=== PATIENT | female | born 1960 | race Caucasian/White ===

== ENCOUNTER 2020-10-22 08:37 | Outpatient (CLI) | payer BC, SELFPAY ==
--- NOTE | 2020-10-22 08:45 | MR_ITS ---
WS: [id number] MRI HEAD WITHOUT CONTRAST TECHNIQUE: Sagittal T1, T2 axial, T2 axial FLAIR, axial and coronal T1 images, axial susceptibility w eighted imaging, axial diffusion weighted images, and coronal T2 images were obtained. CLINICAL INFORMATION: HEADACHE COMPARISON: None. FINDINGS: No evidence of restricted diffusion to suggest acute ischemia. Ventricular system and basal cisterns are patent. Mild patchy supratentorial white matter changes likely due to small vessel disease in a p atient this age. Mild parenchymal volume loss. Normal posterior fossa. Normal vascular flow voids at the skull base. No extra-axial fluid collections. No evidence of mass or mass effect. No hemosiderin on the susceptib ly weighted images. Normal optic chiasm and pituitary infundibulum. Temporal lobes and hippocampal fo rmations are normal in appearance. Normal optic chiasm and pituitary infundibulum. Normal cavernous s inuses and Meckel's cave. MR/MR head wo con* [id number] IMPRESSION: 1. No evidence of restricted diffusion to suggest acute ischemia. 2. Mild small vessel changes with mild parenchymal volume loss. 3. No hemosiderin on susceptibly weighted images. 4. Normal temporal lobes and hippocampal formations. Normal optic chiasm and p ituitary infundibulum. 5. No other significant findings.
== END 2020-10-22 08:38 | disposition home or self-care (01) ==
PROVIDERS: PCP Internal Medicine; Visit Provider Internal Medicine
DX: R51.9 Headache, unspecified (principal)
CPT/HCPCS: 70551

== ENCOUNTER 2021-02-01 06:00 | Outpatient (RCR) | payer BC, SELFPAY | END 2021-02-23 23:59 | disposition home or self-care (01) | LOC: SOT 06:00 | PROVIDERS: PCP Internal Medicine; Referring Provider Orthopaedic Surgery; Visit Provider Orthopaedic Surgery | DX: M18.11 Unilateral primary osteoarthritis of first carpometacarpal joint, right hand (principal) | CPT/HCPCS: 97110; 97112; 97166; 97530 ==

== ENCOUNTER 2021-02-24 06:00 | Outpatient (RCR) | payer BC, SELFPAY | END 2021-03-25 12:22 | disposition home or self-care (01) | LOC: SOT 06:00 | PROVIDERS: PCP Internal Medicine; Referring Provider Orthopaedic Surgery; Visit Provider Orthopaedic Surgery | DX: M18.11 Unilateral primary osteoarthritis of first carpometacarpal joint, right hand (principal) | CPT/HCPCS: 97110; 97112 ==

== ENCOUNTER 2022-04-19 08:53 | Outpatient (CLI) | payer BC, SELFPAY ==
--- NOTE | 2022-04-19 09:19 | CT_ITS ---
WS: [id number] LDCT LUNG CANCER SCREENING HISTORY: NICOTINE DEPENDENCE TECHNIQUE: Axial imaging performed from the apices to 1 cm below the costophrenic angles. Coronal and sagittal reformats are submitted with axial MIP series. All CT scans at [facility] use at least one of these dose optimization techniques: automated exposure control; mA and/or kV adjustment per patient size (includes targeted exams where dose is matched to clinical indication); or iterativ e reconstruction. DLP: 74.52 mGy.cm DIvol: Mean CTDIvol: 1.60 (mGy) COMPARISON: None available. Diagnostic quality: Satisfactory Lung Nodules: Marked pulmonary hyperexpansion. Centrilobular emphysema. Biapical pleural thickening a nd scarring. Additional areas of peripheral pleural thickening and tagging bilaterally. No pulmonary mass or nodules. No endobronchial thickening. Mild changes in the RIGHT upper lobe of bronchiectasis. Heart: Normal size heart. No pericardial effusion. Other findings: No mediastinal or hilar adenopathy. Mild atherosclerosis aorta. No aneurysm. Negative upper abdomen. Marked increase in thoracic kyphosis thoracic spine. Disc spaces are narrowed. CT/CT lung screening [id number] IMPRESSION: LUNG-RADS: 1-Negative FOLLOW UP: 12 Month: Continue annual screening with LDCT OTHER FINDINGS (S MODIFIER): None.
== END 2022-04-19 08:54 | disposition home or self-care (01) ==
LOC: RAD 08:56
PROVIDERS: PCP Internal Medicine; Visit Provider Internal Medicine
DX: Z12.2 Encounter for screening for malignant neoplasm of respiratory organs (principal); F17.210 Nicotine dependence, cigarettes, uncomplicated
CPT/HCPCS: 71271

== ENCOUNTER → 2022-09-16 07:22 | Outpatient (BNVA) | payer OTHER, SELFPAY | PROVIDERS: PCP Internal Medicine; Visit Provider Family Medicine Adult Medicine | DX: B34.9 Viral infection, unspecified (principal); R11.2 Nausea with vomiting, unspecified; R19.7 Diarrhea, unspecified; J11.1 Influenza due to unidentified influenza virus with other respiratory manifestations | CPT/HCPCS: 87400; 87426 ==

== ENCOUNTER 2024-01-10 08:38 | Outpatient (CLI) | payer MEDICARE, SELFPAY ==
--- NOTE | 2024-01-10 08:43 | XRR_ITS ---
PROCEDURE INFORMATION: Exam: XR Thoracic Spine Exam date and time: 01/10/2024 8:50 AM Age: 63 years old Clinical indication: Pain in thoracic spine; Patient HX: Upper back pain for years, worsening over past 3 month, pain has started running into neck and shoulders; Additional info: Upper back pain, kyphosis on exam, new diagnosis TECHNIQUE: Imaging protocol: Radiologic exam of the thoracic spine. Views: 3 views. COMPARISON: CT lung screening [id number] 04/19/2022 9:24 AM FINDINGS: Bones/joints: Vertebral body spurring can be seen at multiple levels. No fracture or subluxation noted.The bony structures demonstrate diffuse osteopenia. Soft tissues: Unremarkable. XR/XR thoracic spine min 4V [id number] IMPRESSION: No acute findings.
== END 2024-01-10 08:39 | disposition home or self-care (01) ==
LOC: RAD 08:39
PROVIDERS: PCP Family Medicine Adult Medicine; Visit Provider Family Medicine Adult Medicine
DX: M40.00 Postural kyphosis, site unspecified (principal); M54.6 Pain in thoracic spine; M89.8X1 Other specified disorders of bone, shoulder; M19.90 Unspecified osteoarthritis, unspecified site; M25.78 Osteophyte, vertebrae
CPT/HCPCS: 72074; 80053; 80061; 84443; 85025

== ENCOUNTER → 2024-09-26 14:30 | Outpatient (BNVA) | payer MEDICARE, OTHER, SELFPAY | PROVIDERS: PCP Family Medicine Adult Medicine; Visit Provider Family Medicine | DX: Z12.11 Encounter for screening for malignant neoplasm of colon (principal); Z12.12 Encounter for screening for malignant neoplasm of rectum; F17.218 Nicotine dependence, cigarettes, with other nicotine-induced disorders; R07.9 Chest pain, unspecified; I10 Essential (primary) hypertension; E78.5 Hyperlipidemia, unspecified; N18.32 Chronic kidney disease, stage 3b; Z76.89 Persons encountering health services in other specified circumstances; F33.9 Major depressive disorder, recurrent, unspecified; M54.6 Pain in thoracic spine; G89.29 Other chronic pain; G25.81 Restless legs syndrome; J43.1 Panlobular emphysema; F51.01 Primary insomnia; Z12.2 Encounter for screening for malignant neoplasm of respiratory organs | CPT/HCPCS: 80053 ==

== ENCOUNTER → 2024-10-03 14:22 | Outpatient (BNVA) | payer MEDICARE, OTHER, SELFPAY | PROVIDERS: PCP Family Medicine; Visit Provider Student in an Organized Health Care Education/Training Program | DX: Z12.11 Encounter for screening for malignant neoplasm of colon (principal) | CPT/HCPCS: 99024; 99204 ==

== ENCOUNTER 2024-10-07 09:43 | Outpatient (CLI) | payer MEDICARE, OTHER, SELFPAY ==
--- NOTE | 2024-10-07 10:00 | CT_ITS ---
WS: [id number] LDCT LUNG CANCER SCREENING HISTORY: smoker; 50pk yr hx; screening TECHNIQUE: Axial imaging performed from the apices to 1 cm below the costophrenic angles. Coronal and sagittal reformats are submitted with axial MIP series. All CT scans at [facility] use at least one of these dose optimization techniques: automated exposure control; mA and/or kV adjustment per patient size (includes targeted exams where dose is matched to clinical indication); or iterative reconstruction. DLP: 49.80 mGy.cm DIvol: Mean CTDIvol: 0.80 (mGy) COMPARISON: 04/19/2022 Diagnostic quality: Satisfactory Lungs: Marked pulmonary hyperexpansion with emphysema. Stable biapical pleural fibrosis and scarring. No pulmonary mass or nodule. No endobronchial lesions. Heart: Normal size heart with no pericardial effusion.. Other findings: Mild atherosclerosis aorta. No mediastinal or hilar adenopathy. No adrenal mass. Moderate increase in thoracic kyphosis. CT/CT lung screening [id number] IMPRESSION: LUNG-RADS: 1-Negative FOLLOW UP: 12 Month: Continue annual screening with LDCT OTHER FINDINGS (S MODIFIER): None.
== END 2024-10-07 09:44 | disposition home or self-care (01) ==
PROVIDERS: PCP Family Medicine; Visit Provider Family Medicine
DX: Z12.2 Encounter for screening for malignant neoplasm of respiratory organs (principal); F17.218 Nicotine dependence, cigarettes, with other nicotine-induced disorders; R91.8 Other nonspecific abnormal finding of lung field; J43.9 Emphysema, unspecified; J84.10 Pulmonary fibrosis, unspecified; J98.4 Other disorders of lung; I70.0 Atherosclerosis of aorta; M40.294 Other kyphosis, thoracic region
CPT/HCPCS: 71271

== ENCOUNTER 2024-10-29 08:31 | Day surgery (SDC) | payer MEDICARE, OTHER, SELFPAY ==
[2024-10-29 08:57] VITALS: BP 130/92; PULSE 94; RESP 18; TEMP 36.3; O2SAT 96; BMI 23.9
[2024-10-29] MEDS: sodium chloride 0.9% 1,000 ML 15 ML IV (09:14)
--- NOTE | 2024-10-29 09:17 | ANES.PREANE2 ---
Pre-Anesthetic Assessment Height/Weight: Height 1.6 m Weight 61.235 kg Temp Pulse Resp BP Pulse Ox O2 Del Method 97.3 F L 94 18 130/92 96 Room Air 10/29/24 08:57 10/29/24 08:57 10/29/24 08:57 10/29/24 08:57 10/29/24 08:57 10/29/24 08:57 Preop Diagnosis: screening Operation Date: 10/29/24 10:00 Proposed Procedures p Colonoscopy 38733, G0121, Z12.11(Not Applicable) - Gael Rader MD Familial anesthetic complications: none Was Beta Rusty taken within 24 hours: N/A Was Clonidine taken within 24 hours: N/A Last intake: Intake Last Liquid Date 10/28/24 Last Liquid Time 20:00 Last Solid Date 10/27/24 Last Solid Time 17:00 Social Tobacco (1 ppd since 13 years old) Exam alert, oriented x 3, clear to auscultation bilaterally and regular rate & rhythm Airway Submandibular: within normal limits Cervical ROM: within normal limits Mallampati: Class II Dentition: false (upper denture) Pulmonary Chronic Obstructive Pulmonary Disease CV/HEM Unstable Angina and Hypertension stress test ordered consulted Dr. Rogers, 12 Lead EKG ordered. Chronic Renal Insufficiency creatinine 1.3 Hepatic None reported GI None reported Metabolic Hyperlipidemia Musc/skel Lower Back Pain and Scoliosis (Kyphosis) Neuropsych None reported Anesthetic Plan ASA status: 3 Anesthesia: MAC Other: EKG not indicative of ischemia at this time patient states it has been several months since angina. Risk explained thoroughly to patient, wishes to proceed. Dr. Soriano feels given the risk of the procedure and current evaluation it is reasonable to proceed as well. Medications/Allergies Home Medications ?Medication ?Instructions ?Recorded ?Confirmed ?Last Taken ?Type gabapentin 300 mg capsule 900 mg (3 x 300 mg) PO .q hs leg 10/10/23 10/25/24 10/27/24 Rx movement/cramps #90 caps albuterol sulfate 90 mcg/actuation 1 inh inhalation QID copd/cough 09/29/24 10/25/24 10/28/24 Rx aerosol inhaler #8.5 grams amlodipine 10 mg tablet 10 mg PO DAILY #90 tabs 09/30/24 10/25/24 10/27/24 Rx aripiprazole 5 mg tablet (Abilify) 5 mg PO DAILY #90 tabs 09/30/24 10/25/24 10/28/24 Rx atorvastatin 40 mg tablet 40 mg PO DAILY cholesterol #90 tabs 09/30/24 10/25/24 10/27/24 Rx bupropion HCl 300 mg 24 hr tablet, 300 mg PO QAM #90 tabs 09/30/24 10/25/24 10/28/24 Rx extended release cetirizine 10 mg tablet (All Day 10 mg PO DAILY PRN allergy 09/30/24 10/25/24 10/26/24 Rx Allergy (cetirizine)) symptoms #90 tabs Allergies Allergy/AdvReac Type Severity Reaction Status Date / Time Sulfa (Sulfonamide AdvReac Mild yeast Verified 10/25/24 07:14 Antibiotics) infection Current Medications Generic Name Dose Route Start Last Admin Trade Name Freq PRN Reason Stop Dose Admin Sodium Chloride 1,000 mls @ 15 mls/hr 10/29/24 08:34 10/29/24 09:14 Sodium Chloride 0.9% IV 10/30/24 08:33 15 mls/hr .Q24H PRN Administration COLONOSCOPY FLUIDS PFSH Anesthesia Medical History (Updated 10/25/24 @ 09:39 by Maite Peralta MD) Need for pneumococcal 20-valent conjugate vaccination Screening for lung cancer LDCT 10.07.24--repeat 1 yr Major depression, recurrent, chronic Sensorineural hearing loss, bilateral ENT 10/08/23 Iris Pickard, DIRECTOR CLINICAL APPLICATIONS-C Dyslipidemia CKD stage 3b, GFR 30-44 ml/min Thoracic back pain x-rays show bone spurs Kyphosis (acquired) (postural) Allergic rhinitis due to allergen Extrapyramidal and movement disorder Urge incontinence of urine COPD (chronic obstructive pulmonary disease) Insomnia RLS (restless legs syndrome) Tobacco use disorder 1 ppd since age 13 Mixed anxiety and depressive disorder onset 03/15/2023 on sertraline and Effexor in past HTN (hypertension) with goal to be determined Arthritis Surgical History (Updated 10/25/24 @ 09:13 by Maite Peralta MD) History of bladder surgery mesh bladder suspension Hx of laparoscopy for tubal infections Hx of hand surgery for arthritis History of carpal tunnel release of both wrists Hx of colonoscopy 11/12/2012 History of partial hysterectomy ovaried remaining; done for benign reasons History of appendectomy Family History Father Multiple myeloma Mother Brain cancer Brother Cancer esophageal Social History Smoking and tobacco/nicotine status: current every day tobacco/nicotine user cigarettes Packs smoked per day: 1 [ Other cigarette details: started age 13; ] Quit status (tobacco/nicotine): not considering quitting Alcohol intake: former Substance/Drug Use: never Household members: spouse Marital status: Number of children: 2 Highest education level completed: High School Graduate Current occupational status: retired Previous occupational history: [employer]
--- NOTE | 2024-10-29 09:42 | W.PM.OPSUD ---
Surgery/Procedure H&P Update DATE OF PROCEDURE: October 29, 2024 DATE H&P PERFORMED: 10/25/24 H&P UPDATE INFORMATION: I have reviewed H&P completed within last 30 days, I have examined patient prior to procedure and No changes to prior documentation PREOP DIAGNOSIS: screening PLANNED PROCEDURE: Operation Date: 10/29/24 10:00 Proposed Procedures p Colonoscopy 36050, G0121, Z12.11(Not Applicable) - Gael Rader MD
--- NOTE | 2024-10-29 09:54 | ECG_ITS ---
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 Measurements Intervals [place] Rate: 87 P: 71 CA: 151 QRS: 46 QRSD: 80 T: 42 QT: 370 QTc: 447 Interpretive Statements SINUS RHYTHM ANTERIOR MYOCARDIAL INFARCTION , PROBABLY OLD [40+ ms Q WAVE AND/OR ST/T ABNORMALITY IN V3/V4] Compared to ECG 10/31/2017 13:59:44 Myocardial infarct finding now present Sinus bradycardia no longer present Electronically Signed On 10-30-2024 23:39:31 CDT by Oracio Haro M.D. [email or web address]
[2024-10-29 11:05] VITALS: BP 110/88; PULSE 88; RESP 18; TEMP 36.3; O2SAT 100
[2024-10-29 11:30] VITALS: BP 127/87; PULSE 97; RESP 18; O2SAT 96
--- NOTE | 2024-10-29 11:33 | ANE.PACU2 ---
Inpatient post-anesthesia follow up: Airway intact: Yes Vital signs: Temperature 97.3 F Pulse Rate 97 Respiratory Rate 18 Blood Pressure 127/87 Pulse Oximetry 96 Oxygen Delivery Me thod Room Air Oxygen Flow Rate Fraction of Inspir ed Oxygen Hydration adequate: Yes Nausea and vomiting: No Pain level: 1 Mental status: Baseline
== END 2024-10-29 11:38 | disposition home or self-care (01) ==
PROVIDERS: PCP Family Medicine; Visit Provider Student in an Organized Health Care Education/Training Program
PROC: 0DJD8ZZ Inspection of Lower Intestinal Tract, Via Natural or Artificial Opening Endoscopic (ICD-10-PCS; CPT 45378; principal; 2024-10-29 10:00)
DX: Z12.11 Encounter for screening for malignant neoplasm of colon (principal); D12.5 Benign neoplasm of sigmoid colon; I12.9 Hypertensive chronic kidney disease with stage 1 through stage 4 chronic kidney disease, or unspecified chronic kidney disease; E78.5 Hyperlipidemia, unspecified; J44.9 Chronic obstructive pulmonary disease, unspecified; F17.210 Nicotine dependence, cigarettes, uncomplicated; Z79.899 Other long term (current) drug therapy; Z88.2 Allergy status to sulfonamides; N18.32 Chronic kidney disease, stage 3b
CPT/HCPCS: 45385; 88305; 93005; J2704; J7030

== ENCOUNTER 2024-10-31 13:21 | Outpatient (CLI) | payer MEDICARE, OTHER, SELFPAY ==
--- NOTE | 2024-10-31 13:40 | MM_ITS ---
WS: [id number] BILATERAL SCREENING DIGITAL TOMOSYNTHESIS MAMMOGRAM WITH CAD HISTORY: screening COMPARISON: 06/04/2014 Bilateral CC and MLO views with tomosynthesis and synthetic mammography submitted. Computer aided detection analyzed. Breast composition: The breasts are extremely dense, which lowers the sensitivity of mammography. No suspicious masses, microcalcifications or architectural distortion. Stable calcifications in each breast. MM/MM scr tomosynthesis [id number] IMPRESSION: BI-RADS: 2 - Benign FOLLOW UP: 1 Year Follow-up
--- NOTE | 2024-10-31 14:00 | XR_ITS ---
WS: [id number] DEXA (DUAL ENERGY X-RAY ABSORPTIOMETRY) Bone mineral density was performed using a [employer] machine. HISTORY: postmenopausal COMPARISON: None available. Lumbar spine BMD (L1-L4): 0.839 g/cm2 T score: -2.8 Z score: -1.1 Total hip BMD: Left: 0.781 g/cm2. T score: -1.8 Z score: -0.5 Right: 0.790 g/cm2. T score: -1.7 Z score: -0.4 10 year probability of a major osteoporotic fracture is 13.2%. XR/XR DEXA axial skeleton* [id number] IMPRESSION: OSTEOPOROSIS based upon the WHO classification for females.
== END 2024-10-31 13:22 | disposition home or self-care (01) ==
LOC: RAD 13:23
PROVIDERS: PCP Family Medicine; Visit Provider Family Medicine
DX: Z12.31 Encounter for screening mammogram for malignant neoplasm of breast (principal); Z78.0 Asymptomatic menopausal state; M81.0 Age-related osteoporosis without current pathological fracture; R92.343 Mammographic extreme density, bilateral breasts; R92.1 Mammographic calcification found on diagnostic imaging of breast
CPT/HCPCS: 77063; 77067; 77080

== ENCOUNTER → 2024-11-11 10:46 | Outpatient (BNVA) | payer MEDICARE, OTHER, SELFPAY | PROVIDERS: PCP Family Medicine; Visit Provider Family Medicine | DX: N18.32 Chronic kidney disease, stage 3b (principal); M81.0 Age-related osteoporosis without current pathological fracture | CPT/HCPCS: 82306; 82310; 83970 ==

== ENCOUNTER → 2024-11-15 08:31 | Outpatient (BNVA) | payer MEDICARE, OTHER, SELFPAY | PROVIDERS: PCP Family Medicine; Visit Provider Student in an Organized Health Care Education/Training Program | DX: Z09 Encounter for follow-up examination after completed treatment for conditions other than malignant neoplasm (principal) | CPT/HCPCS: 99213 ==

== ENCOUNTER 2024-11-19 08:53 | Outpatient (CLI) | payer MEDICARE, OTHER, SELFPAY ==
--- NOTE | 2024-11-19 09:12 | ECG_ITS ---
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 The perfusion scan will be documented separately. DATA: Baseline heart rate was 89 beats per minute. Baseline blood pressure was 130/88 millimeters of mercury. Target heart rate was 154. Maximum heart rate achieved was 110. which was 71 % of the predicted target heart rate. Maximum blood pressure was 131/90 millimeters of mercury. The reason for ending the test was completion of the protocol. The patient did not experience any symptoms. ELECTROCARDIOGRAM: BASELINE: Sinus rhythm. Normal axis. Otherwise, no ST-T changes suggestive of ischemia noted. No arrhythmia noted. EXERCISE: After Lexiscan injection, no ST-T changes suggestive of ischemic noted. No arrhythmia noted. CONCLUSION: Please note due to baseline abnormality of the EKG specificity and sensitivity of the EKG portion of LexiScan MIBI stress test will be low 1. EKG not suggestive of ischemia 2. Lexiscan injection unremarkable. 3. Perfusion scan will be documented separately. Electronically Signed On 12-01-2024 21:30:10 CDT by DAE WARNER [email or web address]
--- NOTE | 2024-11-19 09:13 | NMCV_ITS ---
NM mariebl perf SPECT r/s* [id number] Pita Mitchell Age: 64 Gender: F : 1960 Exam Date: 11/19/2024 09:56 Ordering Phys: Maite Peralta MD Technologist: MAGALY Leong Exam Location: [facility] Indications: cp STRESS TEST Please see separate stress test report in [facility] for full findings IMAGE PROTOCOL Rest/Stress 1 Lexiscan Day Radiopharmaceutical Dose (mCi) Administration Site Administered by Rest: Tc-99m 10.4 IV MAGALY Leong Sestamibi Stress:Tc-99m 32.4 IV MAGALY eWbb Sestamibi Rest: 19-Nov-2024 60 Discovery 630 Stress: 19-Nov-2024 30 Discovery 630 0.4mg Lexiscan. Images obtained in supine and prone position. SPECT RESULTS Technical Quality: Good Raw Data Analysis: Normal Image Corrections: No attenuation or motion correction applied Summed Stress Score: 0 Summed Rest Score: 0 Summed Difference Score: 0 PERFUSION FINDINGS SPECT images demonstrate homogeneous tracer distribution throughout the myocardium. FUNCTIONAL RESULTS (calculated via Gated SPECT) Stress Image LV EF (%): 96 Stress EDV (mL):26 TID: 0.58 Stress ESV (mL):1 FUNCTIONAL FINDINGS: There is normal left ventricular systolic function. IMPRESSIONS Myocardial perfusion imaging is normal. Radha Currna MD (Electronically Signed) Final Date: 29 November 2024 20:29 S
[2024-11-19 09:14] VITALS: BMI 26.0
[2024-11-19] MEDS: regadenoson 0.4 Mg/5 ml Syringe IVP (10:29)
[2024-11-19 10:36] VITALS: BP 113/74; PULSE 96
== END 2024-11-19 08:54 | disposition home or self-care (01) ==
PROVIDERS: PCP Family Medicine; Visit Provider Family Medicine
DX: R07.9 Chest pain, unspecified (principal)
CPT/HCPCS: 36415; 78452; 93017; 96374; A9500; J2785

== ENCOUNTER → 2025-04-28 08:33 | Outpatient (BNVA) | payer MEDICARE, OTHER, SELFPAY | PROVIDERS: PCP Family Medicine; Visit Provider Family Medicine | DX: E78.5 Hyperlipidemia, unspecified (principal); I10 Essential (primary) hypertension; R07.9 Chest pain, unspecified; M81.0 Age-related osteoporosis without current pathological fracture; N18.32 Chronic kidney disease, stage 3b; Z11.59 Encounter for screening for other viral diseases; F41.8 Other specified anxiety disorders | CPT/HCPCS: 80061; 84439; 84443; 85025; 86803 ==